=== PATIENT | female | born 1975 | race Caucasian/White ===

== ENCOUNTER 2018-02-09 18:54 | Emergency (ER) | payer OTHER ==
[2018-02-09] MEDS ORDERED: Fentanyl 100 MCG/2 ML VIAL ONE (19:37)
[2018-02-09] MEDS ORDERED: Ondansetron ODT 4 MG TAB ONE (19:48)
--- NOTE | 2018-02-09 20:46 | ULT ---
ULTRASOUND PELVIC TRANSABDOMINAL AND TRANSVAGINAL 02/09/18 HISTORY: Pelvic pain. Left lower quadrant pain. COMPARISON: None. FINDINGS: The uterus has been removed. Right ovary measures 2.9 x 1.7 x 2.4 cm with adequate vascular flow. Lef t ovary measures 3.2 x 3.2 x 3.2 cm with adequate vascular flow. Septated cysts in the left ovary francoise suring up to 2.2 cm. no free fluid in the pelvis. IMPRESSION: 1. Mildly complex cyst in the left ovary. Followup ultrasound in six weeks recommended. 2. No evidence of torsion POS: [facility]
[2018-02-09] MEDS ORDERED: Morphine 4 MG/ML VIAL ONE (21:33)
== END 2018-02-09 21:57 | disposition home or self-care (01) ==
LOC: ERS 18:54
DX: N83.202 Unspecified ovarian cyst, left side (principal); F98.8 Other specified behavioral and emotional disorders with onset usually occurring in childhood and adolescence
CPT/HCPCS: 76856; 96374; 96375; J2270; J3010; Q0162